=== PATIENT | female | born 1960 | race American Indian/Alaskan Native ===

== ENCOUNTER → 2017-01-01 | Outpatient (CLI) | payer OTHER ==
[~2017-01-01] MED LIST: AMITRIPTYLINE H50 MG PO; CETIRIZINE HCL10 MG PO; HYDROCHLOROTH12.5 MG PO; HYDROXYZINE HCL25 M1 PO; IBUPROFEN600 MG PO; LEVOTHYROXINE112 MCG PO; LEVOTHYROXINE137 MCG PO; PROZAC PO
--- NOTE | ~2017-01-01 | EKG ---
PATIENT: RAVIN TAYLOR UNIT #: [id number] Ventricular Rate: 90 BPM Atrial Rate: 90 BPM P-R Interval: 146 ms QRS Duration: 82 ms Q-T Interval: 386 ms QTC Calculation(Bezet): 472 ms P [place]: 58 degrees Calculated R [place]: 114 degrees Calculated T [place]: 52 degrees Diagnosis Line: Normal sinus rhythm Diagnosis Line: Left posterior fascicular block Diagnosis Line: Abnormal ECG Diagnosis Line: No previous ECGs available Diagnosis Line: Confirmed by CECE ISAAC MD ([id number]) on 01/01/2017 Diagnosis Line: 4:47:21 PM INTERPRETING MD: MARLIN ZARAGOZA
[2017-01-01 13:57] LABS: ALBUMIN SERUM 3.8 g/dL (3.5-5.0); ALKALINE PHOSPHATASE 133 U/L (32-92); ALT (SGPT) 20 U/L (10-40); AST (SGOT) 18 U/L (10-42); BILIRUBIN,TOTAL 0.5 mg/dL (0.2-2.0); BLOOD UREA NITROGEN 10 mg/dL (9-23); CALCIUM SERUM 9.4 mg/dL (8.4-10.2); CARBON DIOXIDE 28 mmol/L (22-31); CHLORIDE 102 mmol/L (100-111); CREATININE SERUM 0.8 mg/dL (0.6-1.4); GLOM FILT RATE Estimated ABOVE60 mL/min (>60); GLUCOSE FASTING 90 mg/dL (70-110); POTASSIUM 3.6 mmol/L (3.5-5.1); PROTEIN TOTAL SERUM 6.9 g/dL (6.0-8.3); SODIUM 137 mmol/L (135-145)
== END | disposition home or self-care (01) ==
LOC: CAMB 10:42
PROVIDERS: Surgery
DX: Z01.818 Encounter for other preprocedural examination (principal); R94.31 Abnormal electrocardiogram [ECG] [EKG]; I44.5 Left posterior fascicular block
CPT/HCPCS: 36415; 80053; 93005

== ENCOUNTER → 2017-01-08 | Day surgery (SDC) | payer OTHER ==
--- NOTE | ~2017-01-08 | OR ---
Unit #: [id number] #: [id number] Patient: RAVIN TAYLOR [id number] [address] [address] [id number] O MR#: [id number] NAME: RAVIN TAYLOR ROOM: Date of Procedure: 01/08/2017 Admission Date: 01/08/2017 Surgeon: Russ Oliver Jr., M.D. : 1960 Attending Physician: Russ Oliver Jr., M.D. [facility] RE[facility] INDICATIONS FOR PROCEDURE The patient is a 56-year-old white female, recently presented to the office complaining of intermittent mid epigastric abdominal pain with nausea and workup revealed evidence of cholelithiasis with probably chronic cholecystitis. The patient is brought in this time for laparoscopic cholecystectomy. She understands the procedure including risks, including that of common duct injury, biliary leak, and bleeding, and intra-abdominal organ injury, and consents. PREOPERATIVE DIAGNOSES Chronic cholecystitis with cholelithiasis. POSTOPERATIVE DIAGNOSES Chronic cholecystitis with cholelithiasis. ANESTHESIA General with endotracheal intubation and 0.5% Marcaine with epinephrine locally in the port sites. PROCEDURE PERFORMED Laparoscopic cholecystectomy. DESCRIPTION OF PROCEDURE The patient was positioned in supine position. After being anesthetized and intubated, she was prepped and draped in routine fashion for laparoscopic cholecystectomy. A small supraumbilical incision was made approximately a 1 cm in length. This was carried down to the fascia. The fascia in the umbilicus was lifted with a towel clip and a Veress needle introduced in the abdomen. The abdomen was then inflated with CO2 gas. A 5-mm port was introduced into the abdomen. There was no evidence of any injury related to introduction of the port of the Veress needle. Brief intra-abdominal exploration was carried out. The patient was noted to have somewhat of a fatty liver, otherwise no other specific abnormalities. The gallbladder appeared chronically inflamed. Two 5-mm ports were placed laterally and an 11-mm port just to the right of the upper midline. The gallbladder was lifted. Dissection was carried out in the triangle of Calot, cystic duct which was 1 to 2 mm in diameter was isolated, hemoclipped x4, and divided approximately a 1 cm from its junction with the common duct. Cystic artery was identified, hemoclipped x3, and divided. The common duct appeared normal. The gallbladder was then removed from its bed with the hook cautery using a current of 20. There was 1 small ductal structure which appeared to be possibly a duct of Unit #: [id number] #: [id number] Patient: PLAYERRAVIN. This was hemoclipped and divided. The gallbladder was removed from its bed and removed through the larger port site with the port and the grasping clamp. The port was replaced. Subhepatic space checked. Small amount of oozing was controlled with the Bovie cautery. After total hemostasis was noted, the clips on cystic duct and cystic artery were visualized. There was no evidence of any leak or bleeding. At this point, the CO2 was expressed from the abdomen. The fascia in the larger port site approximated using the neoClose technique. The ports were removed. There was no evidence of any bleeding from the port sites. The port sites were injected with 0.5% Marcaine with epinephrine locally and at this point after hemostasis achieved with Bovie cautery and the wounds were irrigated, the skin edges were approximated with stainless-steel skin clips and skin stapling device. Sterile dressings were applied externally. Estimated blood loss less than 50 mL. The patient received less than 1500 mL crystalloid solution during the procedure. Sponges and instruments counts were correct x3. No drains used. No complications. The patient was taken to the recovery room with stable vital signs in satisfactory condition. Dictated by... Russ Oliver Jr., Shirley COSTA/fara TD: 01/08/2017 23:02 JOB #: [id number] OPERATIVE REPORT X Russ Oliver MD X PROCEDURE OPERATIVE NOTE
== END | disposition home or self-care (01) ==
LOC: CSUR 06:53
DX: K80.10 Calculus of gallbladder with chronic cholecystitis without obstruction (principal); K21.9 Gastro-esophageal reflux disease without esophagitis; I10 Essential (primary) hypertension; J44.9 Chronic obstructive pulmonary disease, unspecified; E03.9 Hypothyroidism, unspecified; M19.90 Unspecified osteoarthritis, unspecified site; G47.30 Sleep apnea, unspecified; B19.20 Unspecified viral hepatitis C without hepatic coma; Z88.2 Allergy status to sulfonamides; Z88.5 Allergy status to narcotic agent
CPT/HCPCS: 88304; J0690; J1650; J2250; J3010; J3030

== ENCOUNTER → 2017-04-20 | Outpatient (CLI) | payer OTHER ==
--- NOTE | ~2017-04-20 | MR17 ---
[facility] A Service of [facility] RADIOLOGY TEXT RESULTS PATIENT: RAVIN TAYLOR LOCATION: [facility] : 60 UNIT #: [id number] AGE: [address]: Tiago Arzola II, MD SEX: F ORDER DR: [id number] [place], [place] [address] [id number] O MR#: [id number] Acc #: [id number] NAME: RAVIN TAYLOR : 1960 SEX: F STUDY DATE/TIME: 04/20/2017 14:56 UNIT: [facility] ROOM: STUDY DESCRIPTION: MR Brain WWo Contrast Attending Physician: Tiago Arzola II., M.D. Referring Physician: Tiago Arzola II., M.D. Ordering Physician: Tiago Arzola II., M.D. Primary Care Physician: Gena Gunter M.D. MRI CENTER REPORT This report is preliminary unless electronic signature is present. EXAM Brain MRI with and without contrast DATE OF STUDY 04/20/2017 PROCEDURE Routine brain MRI with and without contrast COMPARISON None CLINICAL HISTORY 20-year history of headache, no significant change in symptoms. FINDINGS There is no MR evidence of acute ischemia or other restricted diffusion. There is no MR evidence of intracranial hemorrhage. There is no extraaxial fluid collection. There is asymmetric dilatation of the right lateral ventricle, with leftward shift of the set of the septum pellucidum, and there is dilatation of the right lateral ventricular temporal horn and occipital horn as well. There is no evidence of a mass in the region of the foramen of Robles. In fact, there appears to be CSF flow jet through the foramen. There is no sulcal effacement on the right. There is some scattered nonspecific subcortical T2 changes and lesser periventricular white matter changes in the brain. Postcontrast images show no mass or abnormal enhancement. IMPRESSION 1. 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 Finding again is probably incidental and developmental. 2. Nonspecific white matter changes seen, [id number], but no acute abnormality is identified. Dictated by... Jered Juárez M.D. THIS IS AN ELECTRONICALLY VERIFIED REPORT Jered Juárez M.D. at 04/22/2017 4:27 PM TEV/to TD: 04/21/2017 13:36 JOB #: [id number] MRI CENTER REPORT Page 1 of 1 COPY
== END | disposition home or self-care (01) ==
LOC: CMRI 14:31
DX: R51 Headache (principal); R90.89 Other abnormal findings on diagnostic imaging of central nervous system
CPT/HCPCS: 70553; A9577